=== PATIENT | male | born 1960 | race Caucasian/White ===

== ENCOUNTER 2020-05-24 08:50 | Outpatient (REF) | payer OTHER, SELFPAY ==
--- NOTE | ~2020-05-24 | MR_ITS ---
EXAMINATION: MR LUMBAR SPINE WITHOUT CONTRAST CLINICAL INFORMATION: Low back pain radiating to left leg. Left foot numbness. COMPARISON: None TECHNIQUE: MRI of the lumbar spine was obtained using routine sequences without contrast. FINDINGS: There is normal lumbar lordosis. The vertebral heights and alignment is normal. There is loss of L4-L5 and L5-S1 disc heights with mild disc desiccation changes from L3-L4 through L5-S1 disc levels. At T12-L1 disc level there is no signal disc bulge, herniation or spinal stenosis. The neural foramina are widely patent. At L1-L2 disc level there is no significant disc bulge, herniation or spinal stenosis. The neural foramina are patent bilaterally. At L2-L3 disc level well hydrated disc is noted without any disc bulge, herniation or spinal canal stenosis. There is mild circumferential canal stenosis. The neural foramina are widely patent bilaterally. At L3-L4 disc level there is mild circumferential canal stenosis with patent bilateral neural foramina. At L4-L5 disc level there is mild diffuse bulge with circumferential mild spinal canal stenosis. In addition there is left paracentral disc herniation and inferior disc migration in close approximation to the exiting L5 nerve root. There is mild bilateral facet joint hypertrophy. At L5-S1 disc level there is mild diffuse bulge/osteophyte complex extending laterally to left in close approximation moderately narrowing the neural foramina and mildly flattening of L5 nerve root within the neural foramina. The right neural foramina is patent. There are mild T2 endplate changes L4-L5 and L5-S1 disc level. Conus medullaris terminates at T12-L1 disc level and appears normal in morphology. MR/MR lumbar spine wo con IMPRESSION: 1. Disc desiccation change, loss of disc height, broad based diffuse bulge and left paracentral disc herniation in close approximation to the exiting L5 nerve root at L4-L5 disc level. There is mild spinal stenosis. 2. Broad base diffuse bulge/osteophyte complex left paracentral resulting in moderate narrowing of left neural foramina and flattening the L5 nerve root at L5-S1 disc level. The right neural foramina is patent.
== END 2020-05-24 08:51 | disposition home or self-care (01) ==
LOC: HO.MRI 08:50
PROVIDERS: Visit Provider Anesthesiology
DX: M47.27 Other spondylosis with radiculopathy, lumbosacral region (principal)
CPT/HCPCS: 72148